=== PATIENT | female | born 1955 ===

== ENCOUNTER 2024-02-01 16:00 | Inpatient (IN) | payer MEDICARE, OTHER, SELFPAY ==
[2024-02-01 16:42] VITALS: BP 167/93; PULSE 104; RESP 16; TEMP 37.3; O2SAT 94
[2024-02-01 17:19] VITALS: BMI 17.2
[2024-02-01 18:27] VITALS: BP 163/91
[2024-02-01] MEDS: amLODIPine Besylate 2.5 MG TABLET PO (18:27)
[2024-02-01] MEDS: Cyclobenzaprine HCl 5 MG TABLET PO (18:28)
[2024-02-01] MEDS: Venlafaxine HCl ER 150 MG CAP.ER.24H PO (18:29)
[2024-02-01] MEDS: Docusate Sodium 100 MG CAPSULE PO (18:29)
[2024-02-01] MEDS: traZODone HCL 50 MG TABLET PO (18:30)
[2024-02-01] MEDS: LORazepam 1 MG TABLET PO (18:44)
--- NOTE | 2024-02-01 18:48 | PC.ADMIT ---
Pt was admitted to S1 from on 12B for the treatment of depression with SI. Precipitants of this admission include pt recently feeling increasingly lonely and unsafe at home which lead her to take more of her Ativan intentionally to ?sleep?. Pt denies this being a suicidal gesture at this time ?If I wanted to I would take the whole bottle?. During our discussion pt is alert and oriented x4, tearful, anxious, but cooperative with the admission process. Mood is described as depressed and anxious ?9/10?.? Affect is congruent to reported mood. Pt denies SI/HI (plan or intent). Pt denies AH/VH. Pt?s thought process is logical and linear. Pt has very poor appetite and has recently lost over 15 pounds. Pt unable to sleep at night due to racing thoughts and feeling ?afraid to be alone at night?. Tox screen positive for cannabinoids, opiates, and benzos. Pt is an everyday marijuana+cigarette smoker. Pt has a long history of medical issues including hyperlipidemia, hypertension, lung tumor removal surgery, and emphysema/COPD. Pt has chronic lower back pain which she rates 9/10 but otherwise denies any physical complaints. Pt ambulates + attends to ADLs independently, gait can be unsteady however due to lower back pain. She is on 5 min checks for safety/new patient and is a fall risk (recent fall, unsteady gait). She is structured and psych group appropriate. Pt has a healthcare proxy - her sister (see documentation under legal section in chart). Skin check reveleased scattered cuts and bruises throughout her arms and legs including a right arm cutting wound (wound consult ordered). See full assessment for more info.
--- NOTE | 2024-02-01 19:06 | PC.ADMIT ---
Pt was admitted to S1 at 1610 from [facility] on a 12B for the treatment of depression with SI. Precipitants of this admission include pt recently feeling increasingly lonely and unsafe at home which lead her to take more of her Ativan intentionally to ?fall sleep?. Pt denies this being a suicidal gesture at this time ?If I wanted to I would take the whole bottle?. During our discussion pt is alert and oriented x4, tearful, anxious, but cooperative with the admission process. Mood is described as depressed and anxious ?9/10?.? Affect is congruent to reported mood. Pt denies SI/HI (plan or intent). Pt denies AH/VH. Pt?s thought process is logical and linear. Pt has very poor appetite and has recently lost over 15 pounds. Pt unable to sleep at night due to racing thoughts and feeling ?afraid to be alone at night?. Tox screen positive for cannabinoids, opiates, and benzos. Pt is an everyday marijuana+cigarette smoker. Pt has a long history of medical issues including hyperlipidemia, hypertension, lung tumor removal surgery, and emphysema/COPD. Pt has chronic lower back pain which she rates 9/10 but otherwise denies any physical complaints. Pt ambulates + attends to ADLs independently, gait can be unsteady however due to lower back pain. She is on 5 min checks for safety/new patient and is a fall risk (recent fall, unsteady gait). She is structured and psych group appropriate. Pt has a healthcare proxy - her sister (see documentation under legal section in chart). Skin check reveleased scattered cuts and bruises throughout her arms and legs including a right arm cutting wound (wound consult ordered). See full assessment for more info.
[2024-02-01 20:00] VITALS: BP 123/70; PULSE 95; RESP 18; TEMP 36.4; O2SAT 96
[2024-02-01] MEDS: HYDROcodone Bit/Acetam 5/325 TABLET 2 TAB PO (20:23)
[2024-02-01] MEDS: Acyclovir 200 MG CAPSULE 400 MG PO (20:23)
[2024-02-02] MEDS: LORazepam 1 MG TABLET PO ×2 (06:46→20:47)
[2024-02-02 08:00] VITALS: BP 145/90; PULSE 98; RESP 18; TEMP 36.6; O2SAT 96
[2024-02-02 08:21] LABS: Alanine Aminotransferase 9 U/L (0-31); Alkaline Phosphatase 79 U/L (39-117); Anion Gap 14 (12-20); Aspartate Amino Transferase 11 U/L (5-31); Bilirubin Total 0.4 mg/dL (0.0-1.0); Blood Urea Nitrogen 19 mg/dL (9-16); Calcium 10.1 mg/dL (8.4-10.2); Carbon Dioxide 30 mmol/L (22-29); Chloride 102 mmol/L (96-108); Cholesterol 217 mg/dL (<200); Creatinine Clr Calc Pharmacy 52.6; Estimated Glomerular Filt Rate > 60; Glucose Fasting 68 mg/dL (60-99); HDL Cholesterol 55 mg/dL (>40); LDL Cholesterol Calculated 132 mg/dL (<100); Potassium 4.8 mmol/L (3.3-5.1); Sodium 141 mmol/L (135-145); Total Protein 6.9 g/dL (6.5-8.0); Triglycerides 150 mg/dL (<150)
[2024-02-02] MEDS: oxyBUTYnin chloride ER 5 MG TAB.ER.24 10 MG PO (08:40)
[2024-02-02] MEDS: traZODone HCL 50 MG TABLET PO (08:41)
[2024-02-02] MEDS: HYDROcodone Bit/Acetam 5/325 TABLET 2 TAB PO ×4 (08:41→20:44)
[2024-02-02] MEDS: Docusate Sodium 100 MG CAPSULE PO (08:41)
[2024-02-02 08:42] VITALS: BP 145/90
[2024-02-02] MEDS: Acyclovir 200 MG CAPSULE 400 MG PO ×3 (08:42→20:44)
[2024-02-02] MEDS: Venlafaxine HCl ER 150 MG CAP.ER.24H PO (08:42)
[2024-02-02] MEDS: amLODIPine Besylate 2.5 MG TABLET PO (08:42)
[2024-02-02] MEDS: Cyclobenzaprine HCl 5 MG TABLET PO (08:42)
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
--- NOTE | 2024-02-02 11:48 | HO.PM.IMCN ---
History of Present Illness Data of Consult Service Date: 02/02/24 Requesting physician: Jorge Valentino Primary Care Provider: Unknown Physician HPI Reason for consult: medical consult 68 yo f with a pmhx of HTN, HLD, stage 1 COPD, current smoker, overactive bladder, L lung ca s/p resection, cervical ca s/p hyst, osteoporosis, kidney stones, admitted to health system for depression and recent SI ?attempted benzo overdose on 01/29 seen at [facility] ED. No medical concerns today. She reports good control of blood pressures and COPD. Started ICS due to illness 1 month ago with persistent cough. Cough and sx resolved now and no longer using inhalers. hx of lung ca and cervical ca both surgically treated and no further radiation or chemotherapy needed. Review of Systems Constitutional: Constitutional: Denies body ache(s), Denies fatigue, Denies frequent falls and Denies headache(s) Eyes: Eyes: Denies change in vision and Denies diplopia ENT: Denies headache(s), Denies nasal congestion and Denies nasal discharge Cardiovascular: Cardiovascular: Denies chest pain, Denies leg edema and Denies dyspnea Respiratory: Respiratory: Denies chest congestion, Denies cough and Denies dyspnea Gastrointestinal: Gastrointestinal: Denies abdominal pain, Denies constipation, Denies diarrhea, Denies nausea and Denies vomiting Genitourinary: Genitourinary: Denies dysuria Musculoskeletal: Musculoskeletal: Denies back pain and Denies myalgias Integumentary/Breasts: Skin/Breast: Denies rash Comments: wound RUE Neurologic: Denies frequent falls and Denies headache(s) Psychiatric: Psychiatric: Reports no additional psychiatric complaints Endocrine: Endocrine: Denies fatigue Hematologic/Lymphatic: Hematologic/Lymphatic: Denies easy bleeding and Denies easy bruising [facility] Medical History (Updated 02/02/24 @ 14:17 by Kitty Samuels PA-C) Kidney stones Fibromyalgia Overactive bladder HLD (hyperlipidemia) HTN (hypertension) COPD on long-term inhaled steroid therapy Lung cancer Cervical cancer Functional capacity: independent ambulation Patient : No Surgical History (Updated 02/02/24 @ 14:09 by Kitty Samuels PA-C) History of elbow surgery History of ankle surgery Hx of appendectomy Hx of hysterectomy Social History Household Members: None Housing: Apartment Do you presently have visiting nurse or other home services: No Patient Tobacco Use Status: Current everyday Tobacco user Tobacco use type: Cigarette Cigarette Packs Per Day: 1 Cigarettes Per Day: 20.0 Years Smoked: 55 Second Hand Smoke Exposure: No Substance Use Type: Marijuana Advance Directives Date on File: 02/01/24 Meds Allergies Allergy/AdvReac Type Severity Reaction Status Date / Time alendronate sodium Allergy Gastrointestinal Verified 02/01/24 16:59 Upset fluoxetine Allergy Unknown Verified 02/01/24 16:59 morphine Allergy Hives Verified 02/01/24 16:59 Penicillins Allergy Hives Verified 02/01/24 16:59 simvastatin Allergy Unknown Verified 02/01/24 16:59 varenicline AdvReac Unknown Verified 02/01/24 16:59 Active Medications: Current Medications Acetaminophen (Acetaminophen 325 Mg Tablet) 650 mg PO Q6H PRN PRN Reason: Headache/Pain Mild Scale (1-3) Hydrocodone Bitart/Acetaminophen (Hydrocodone Bit/Acetam 5/325 Tablet) 2 tab PO QID [facility] Last Admin: 02/02/24 08:41 Dose: 2 tab Acyclovir (Acyclovir 200 Mg Capsule) 400 mg PO TID [facility] Last Admin: 02/02/24 08:42 Dose: 400 mg Al Hydroxide/Mg Hydroxide (Magnesium Hydrox/Alum Hydrox 30 Ml Oral.Susp) 30 ml PO Q6H PRN PRN Reason: Heartburn/Nausea Albuterol Sulfate (Albuterol Sulfate 90 Mcg 8 Gm Inhaler) 2 puff INHALE Q4H PRN PRN Reason: Shortness Of Breath Amlodipine Besylate (Amlodipine Besylate 2.5 Mg Tablet) 2.5 mg PO DAILY [facility]; Protocol Last Admin: 02/02/24 08:42 Dose: 2.5 mg Cyclobenzaprine HCl (Cyclobenzaprine Hcl 5 Mg Tablet) 5 mg PO DAILY [facility] Last Admin: 02/02/24 08:42 Dose: 5 mg Docusate Sodium (Docusate Sodium 100 Mg Capsule) 100 mg PO DAILY [facility] Last Admin: 02/02/24 08:41 Dose: 100 mg Hydroxyzine HCl (Hydroxyzine Hcl 25 Mg Tablet) 25 mg PO Q6H PRN PRN Reason: Anxiety Lorazepam (Lorazepam 1 Mg Tablet) 1 mg PO TID PRN PRN Reason: Anxiety Last Admin: 02/02/24 06:46 Dose: 1 mg Magnesium Hydroxide (Milk Of Magnesia 30 Ml Oral.Susp) 30 ml PO DAILY PRN PRN Reason: Constipation Oxybutynin Chloride (Oxybutynin Chloride Er 5 Mg Tab.Er.24) 10 mg PO DAILY [facility] Last Admin: 02/02/24 08:40 Dose: 10 mg Trazodone HCl (Trazodone Hcl 50 Mg Tablet) 50 mg PO BEDTIME MRX1 PRN PRN Reason: Insomnia Trazodone HCl (Trazodone Hcl 50 Mg Tablet) 50 mg PO DAILY [facility] Last Admin: 02/02/24 08:41 Dose: 50 mg Venlafaxine HCl (Venlafaxine Hcl Er 150 Mg Cap.Er.24h) 150 mg PO DAILY [facility] Last Admin: 02/02/24 08:42 Dose: 150 mg Home Medications ?Medication ?Instructions ?Recorded ?Confirmed ?Last Taken ?Type acyclovir 400 mg tablet 400 mg PO TID 02/01/24 02/01/24 Unknown History albuterol sulfate 90 mcg/actuation 90 mcg inhalation Q3-4H PRN 02/01/24 02/01/24 Unknown History aerosol inhaler Shortness Of Breath amlodipine 2.5 mg tablet 2.5 mg PO 1XD 02/01/24 02/01/24 Unknown History cyclobenzaprine 5 mg tablet 5 mg PO 1XD 02/01/24 02/01/24 Unknown History docusate sodium 100 mg capsule 100 mg PO 1XD 02/01/24 02/01/24 Unknown History hydrocodone 10 mg-acetaminophen 10 - 325 tab PO QID 02/01/24 02/01/24 Unknown History 325 mg tablet lorazepam 1 mg tablet 1 mg PO QID 02/01/24 02/01/24 Unknown History oxybutynin chloride 10 mg 10 mg PO 1XD 02/01/24 02/01/24 Unknown History tablet,extended release 24 hr trazodone 50 mg tablet 50 mg PO 1XD insomnia 02/01/24 02/01/24 Unknown History venlafaxine 150 mg 150 mg PO 1XD 02/01/24 02/01/24 Unknown History capsule,extended release 24 hr Physical Exam Vital Signs and Narrative: Vital Signs: Last Vital Signs Temp 97.9 F 02/02/24 08:00 Pulse 98 02/02/24 08:00 Resp 18 02/02/24 08:00 BP 145/90 H 02/02/24 08:42 Pulse Ox 96 02/02/24 08:00 O2 Del Method Room Air 02/02/24 08:00 BMI result Body Mass Index 17.2 Constitutional: Alert, oriented x3, NAD Mental Status: Oriented to person, place and time. Eyes: Pupils are equal, round, and reactive to light. Ear, Nose, and Throat: Oropharynx clear, mucous membranes moist. Ears and nose without deformities. Trachea midline. Respiratory: Clear to auscultation bilaterally. No wheezing, rales, or rhonchi. Cardiovascular: S1, S2 regular. No murmurs, rubs, or gallops. Gastrointestinal: Abdomen soft, non-tender, non-distended. Normal bowel sounds. Neurologic: Cranial nerves II-XII are grossly intact bilaterally. No focal neurological deficits. Moves all extremities spontaneously. Skin: Warm, dry. elongated partial thickness wound lateral upper right extremity. appears to be healing, no bleeding or purulent drainage. bandage replaced. Musculoskeletal: No cyanosis or clubbing. Extremities: No edema. Psychiatric: Normal mood and affect. Results Labs 02/02/24 07:40 Labs: Laboratory Results - last 24 hr 02/02/24 07:40 Anion Gap 14 Estim Creat Clear Calc 52.6 Estimated GFR > 60 Fasting Glucose 68 Calcium 10.1 Total Bilirubin 0.4 AST 11 ALT 9 Alkaline Phosphatase 79 Total Protein 6.9 Albumin 4.0 Triglycerides 150 H Cholesterol 217 H LDL Cholesterol, Calc 132 H HDL Cholesterol 55 Assessment and Plan (1) Medical clearance for psychiatric admission: Status: Acute Plan 68 yo f with a pmhx of HTN, HLD, stage 1 COPD, current smoker, overactive bladder, L lung ca s/p resection, cervical ca s/p hyst, osteoporosis, kidney stones and fibromyalgia, admitted to [facility] for depression and recent SI ?attempted benzo overdose on 01/29 seen at [facility] ED. depression/mood d/o - plan per psych HTN - continue amlodipine 2.5mg QD HLD - no medications at this time - borderline elevation of triglycerides, cholesterol, and LDL, monitor lipids presumed stage 1 COPD - not currently using any inhalers and not having cough or SOB - continue montelukast 10mg QD - add anoro inhaler if cough or SOB returns - albuterol inhaler PRN smoker - smoking cessation - nicotine patch overactive bladder - continue oxybutynin hx lung ca - s/p resection, no further tx needed, recent CT normal hx cervical ca - s/p hysterectomy, no further tx needed osteoporosis - restart vitamin D3 25mcg QD Thank you for allowing me to participate in the pt's care. Please contact the medical team if any questions or concerns.
[2024-02-02 14:13] VITALS: BMI 17.2
--- NOTE | 2024-02-02 14:20 | MHC.CLN ---
NUTRITION CONSULT FOR WEIGHT LOSS AND ANOREXIA. DIET=REGULAR. ATE 100% OF BREAKFAST AND LUNCH TODAY. DOES NOT WANT ENSURE SUPPLEMENT. UNDERWEIGHT WITH BMI=17.2. DISCUSSED THAT CAN MAKE OWN FOOD CHOICES AND THAT SNACKS AVAILABLE ON THE UNIT. NO ADDITIONAL NUTRITION INTERVENTIONS AT THIS TIME. SEE CLINICAL NUTRITION ASSESSMENT 02/02/24.
[2024-02-02] MEDS: Nicotine 14 MG PATCH.TD24 TRANSDERMA (15:25)
--- NOTE | 2024-02-02 15:33 | HO.WOUND ---
Wound Consult: Initial 68yr old?female admitted to [facility] [place] on 02/01/24 to the behavioral health unit - See progress notes and H&P for detailed history.? Wound consult placed for Right upper arm.? Patient agreeable to assessment and photo documentation.? Patient is not able to recall the nature of the injury - appears to be skin tear trauma related. Right Upper Arm Etiology: ?Skin Tear ?Present on Admission Measurements: see charting for detailed measurement Wound Bed: deep partial thickness tissue loss, skin flap re-approximated in some areas Drainage / Odor: none noted Edges: ? irregular Cathy wound: ? intact No Induration, Fluctuance or Warmth noted Pain: mild tenderness reported Goals of Treatment: ?moist wound healing Recommendations: 1. Right Upper Arm - Cleanse with normal saline, pat dry. ?Apply Xeroform secure with Abd pads, and tape. Change Daily. ? Re-consult wound care Nurse for wound deterioration or wound changes.
--- NOTE | 2024-02-02 15:49 | PC.NURSE ---
Pt has scratches/bruising on bilateral lower and upper extremities. Wound consult completed, new order for skin tear on right upper arm. Will continue to monitor.
[2024-02-02 20:00] VITALS: BP 137/85; PULSE 92; RESP 18; TEMP 36.6; O2SAT 96
[2024-02-03] MEDS: hydrOXYzine HCL 25 MG TABLET PO ×2 (00:19→20:34)
[2024-02-03] MEDS: traZODone HCL 50 MG TABLET PO ×2 (00:20→08:20)
[2024-02-03 08:00] VITALS: BP 145/98; PULSE 100; RESP 18; TEMP 36.9; O2SAT 96
[2024-02-03] MEDS: HYDROcodone Bit/Acetam 5/325 TABLET 2 TAB PO ×4 (08:19→20:33)
[2024-02-03] MEDS: Docusate Sodium 100 MG CAPSULE PO (08:20)
[2024-02-03] MEDS: oxyBUTYnin chloride ER 5 MG TAB.ER.24 10 MG PO (08:20)
[2024-02-03 08:21] VITALS: BP 145/98
[2024-02-03] MEDS: Acyclovir 200 MG CAPSULE 400 MG PO ×3 (08:21→20:33)
[2024-02-03] MEDS: Venlafaxine HCl ER 150 MG CAP.ER.24H PO (08:21)
[2024-02-03] MEDS: amLODIPine Besylate 2.5 MG TABLET PO (08:21)
[2024-02-03] MEDS: Cholecalciferol (Vitamin D3) 25 MCG TABLET PO (08:22)
[2024-02-03] MEDS: Cyclobenzaprine HCl 5 MG TABLET PO (08:32)
[2024-02-03] MEDS: Nicotine 14 MG PATCH.TD24 TRANSDERMA (08:32)
--- NOTE | 2024-02-03 14:08 | HO.PSYCHPN ---
Subjective Subjective Date of Service: 02/03/24 Reason For Visit: Depression Subjective Notes: Conditional Voluntary Healthcare Proxy: No Guardianship: No Medical Problems Affecting Mental Status: Yes (chronic pain, multiple medical issues none acute) Interim History: 68 yo [address] alone in [facility], 2 daugther in [place] and grandchild- struggling with depression, anxiety, insomnia and chronic pain- We discussed other meds to sleep as well as ? if she should maybe move to [place] to be closer to family- She has a bff in [facility] = but doesn tlike to bother her no access to car right now so is fairly isolated at home- Medication Compliance: Yes Side effects from medications: No Attending Groups: Intermittent Review of Systems Acute medical concerns: No Medical Review of Systems: unchanged Mental Status Exam Mental Status Exam Narrative: looks older than stated age Patient Appearance: Well Grooomed and Appropriate Patient Orientation: Person, Place, Time and Situation Level of Consciousness: Awake and Alert Mood Description: Anxious, Sad and Apprehensive Affect Description: Constricted Patient Cognition Impaired: No Ability to Follow Directions: Good Speech Pattern: Clear Thought Process: Intact and Goal Oriented Thought Content: positive for Goal Oriented and positive for Suicidal Ideation (denies currently, but clearly at risk) Depressive Symptoms: Increased Anxiety, Muscle Tension, Difficulty Sleeping, Significant Weight Loss and Isolating-Friends/Family Judgement: Fair Diagnostics Vital Signs (24Hr): Vital Signs - 24 hr 02/02/24 20:00 02/03/24 08:00 02/03/24 08:21 Temperature 97.8 F 98.4 F Pulse Rate 92 100 Respiratory Rate 18 18 Blood Pressure 137/85 145/98 H 145/98 H Pulse Oximetry 96 96 Oxygen Delivery Method Room Air Room Air BMI result Body Mass Index 17.2 Labs 02/02/24 07:40 Labs: Laboratory Results - last 48 hr 02/02/24 07:40 Sodium 141 Potassium 4.8 Chloride 102 Carbon Dioxide 30 H Anion Gap 14 BUN 19 H Creatinine 0.71 Estim Creat Clear Calc 52.6 Estimated GFR > 60 Fasting Glucose 68 Calcium 10.1 Total Bilirubin 0.4 AST 11 ALT 9 Alkaline Phosphatase 79 Total Protein 6.9 Albumin 4.0 Triglycerides 150 H Cholesterol 217 H LDL Cholesterol, Calc 132 H HDL Cholesterol 55 Medications Medications Current Medications Acetaminophen (Acetaminophen 325 Mg Tablet) 650 mg PO Q6H PRN PRN Reason: Headache/Pain Mild Scale (1-3) Hydrocodone Bitart/Acetaminophen (Hydrocodone Bit/Acetam 5/325 Tablet) 2 tab PO QID [facility] Last Admin: 02/03/24 13:07 Dose: 2 tab Acyclovir (Acyclovir 200 Mg Capsule) 400 mg PO TID [facility] Last Admin: 02/03/24 08:21 Dose: 400 mg Al Hydroxide/Mg Hydroxide (Magnesium Hydrox/Alum Hydrox 30 Ml Oral.Susp) 30 ml PO Q6H PRN PRN Reason: Heartburn/Nausea Albuterol Sulfate (Albuterol Sulfate 90 Mcg 8 Gm Inhaler) 2 puff INHALE Q4H PRN PRN Reason: Shortness Of Breath Amlodipine Besylate (Amlodipine Besylate 2.5 Mg Tablet) 2.5 mg PO DAILY [facility]; Protocol Last Admin: 02/03/24 08:21 Dose: 2.5 mg Cyclobenzaprine HCl (Cyclobenzaprine Hcl 5 Mg Tablet) 5 mg PO DAILY [facility] Last Admin: 02/03/24 08:32 Dose: 5 mg Docusate Sodium (Docusate Sodium 100 Mg Capsule) 100 mg PO DAILY [facility] Last Admin: 02/03/24 08:20 Dose: 100 mg Hydroxyzine HCl (Hydroxyzine Hcl 25 Mg Tablet) 25 mg PO Q6H PRN PRN Reason: Anxiety Last Admin: 02/03/24 00:19 Dose: 25 mg Lorazepam (Lorazepam 1 Mg Tablet) 1 mg PO TID PRN PRN Reason: Anxiety Last Admin: 02/02/24 20:47 Dose: 1 mg Magnesium Hydroxide (Milk Of Magnesia 30 Ml Oral.Susp) 30 ml PO DAILY PRN PRN Reason: Constipation Nicotine (Nicotine 14 Mg Patch.Td24) 14 mg TRANSDERMA DAILY [facility] Last Admin: 02/03/24 08:32 Dose: 14 mg Oxybutynin Chloride (Oxybutynin Chloride Er 5 Mg Tab.Er.24) 10 mg PO DAILY [facility] Last Admin: 02/03/24 08:20 Dose: 10 mg Trazodone HCl (Trazodone Hcl 50 Mg Tablet) 50 mg PO BEDTIME MRX1 PRN PRN Reason: Insomnia Last Admin: 02/03/24 00:20 Dose: 50 mg Trazodone HCl (Trazodone Hcl 50 Mg Tablet) 50 mg PO DAILY [facility] Last Admin: 10/05/24 08:20 Dose: 50 mg Venlafaxine HCl (Venlafaxine Hcl Er 150 Mg Cap.Er.24h) 150 mg PO DAILY [facility] Last Admin: 02/03/24 08:21 Dose: 150 mg Vitamin D (Cholecalciferol (Vitamin D3) 25 Mcg Tablet) 25 mcg PO DAILY [facility] Last Admin: 02/03/24 08:22 Dose: 25 mcg Allergies Allergies Allergy/AdvReac Type Severity Reaction Status Date / Time alendronate sodium Allergy Gastrointestinal Verified 02/01/24 16:59 Upset fluoxetine Allergy Unknown Verified 02/01/24 16:59 morphine Allergy Hives Verified 02/01/24 16:59 Penicillins Allergy Hives Verified 02/01/24 16:59 simvastatin Allergy Unknown Verified 02/01/24 16:59 varenicline AdvReac Unknown Verified 02/01/24 16:59 Assessment & Plan Assessment & Plan (1) MDD (major depressive disorder), recurrent severe, without psychosis: Status: Acute Code(s): F33.2 - Major depressive disorder, recurrent severe without psychotic features Plan Ms. Robles is a 68 year-old woman who was brought via EMS to [facility] ED after intentional OD on ativan. Per documentation from ED, pt had reported taking half bottle of ativan. It is unclear as to who called 911, pt denies she did. In the ED, no significant signs of an actual ativan overdose; pt is described as alert, oriented, no respiratory distress. She reports taking about 4mg-6mg of ativan or so, to help her sleep.' She reports frequent falls, but also reports not remembering how she got them. She has a 1-2cm wound on left knee which she states she does not know how it happened. She also cut right upper arm, which again she states she does not know how it happened. Combination and doses of opioid medication and ativan are concerning. It does seem like ativan has been decreased from 6mg/day to 4mg/day. We discussed gradual decrease in ativan further, to 1mg TID or 0.5mg TID, which pt was in agreement. Will continue effexor 150mg po daily. Will repeat EKG as Qtc was prolonged 505ms. PLAN 1. Admit to S1, CV, 15 minutes checks for safety 2. Memory/cognitive screening 3. obtain collateral information 4. aftercare planning. 02/02 held trazodone trial of seroquel for sleep and depression- adjunct to effexor- suggested family phone call with sw to discuss options of relocating- needs something to make her less isolated and more connected in her community to decrease risks on dc Patient educated on: medication risk/benefits and other Informed Consent: understands Reason for continued inpatient stay Substantial Risk for: harm to self and rapid decompensation Time Spent With Patient Time: Total time managing care of this patient today ____ minutes.
[2024-02-03 20:00] VITALS: BP 130/85; PULSE 87; RESP 18; TEMP 36.6; O2SAT 95
[2024-02-03] MEDS: LORazepam 1 MG TABLET PO (20:33)
[2024-02-03] MEDS: QUEtiapine Fumarate 25 MG TABLET PO ×2 (20:34→21:55)
[2024-02-04 08:56] VITALS: BP 164/85; PULSE 82; RESP 18; TEMP 36.7; O2SAT 97
[2024-02-04] MEDS: Cyclobenzaprine HCl 5 MG TABLET PO (09:43)
[2024-02-04] MEDS: HYDROcodone Bit/Acetam 5/325 TABLET 2 TAB PO ×4 (09:44→20:32)
[2024-02-04] MEDS: oxyBUTYnin chloride ER 5 MG TAB.ER.24 10 MG PO (09:45)
[2024-02-04] MEDS: Docusate Sodium 100 MG CAPSULE PO (09:45)
[2024-02-04] MEDS: Venlafaxine HCl ER 150 MG CAP.ER.24H PO (09:45)
[2024-02-04] MEDS: amLODIPine Besylate 2.5 MG TABLET PO (09:45)
[2024-02-04] MEDS: Acyclovir 200 MG CAPSULE 400 MG PO ×3 (09:46→20:32)
[2024-02-04] MEDS: Cholecalciferol (Vitamin D3) 25 MCG TABLET PO (09:46)
[2024-02-04] MEDS: Nicotine 14 MG PATCH.TD24 TRANSDERMA (09:47)
[2024-02-04] MEDS: hydrOXYzine HCL 25 MG TABLET PO ×2 (13:31→20:32)
[2024-02-04] MEDS: LORazepam 1 MG TABLET PO ×2 (13:55→23:11)
--- NOTE | 2024-02-04 14:18 | HO.PSYCHPN ---
Subjective Subjective Date of Service: 02/04/24 Reason For Visit: Depression Subjective Notes: Conditional Voluntary Healthcare Proxy: No Guardianship: No Medical Problems Affecting Mental Status: No Interim History: 68 yo with continued anxiety, slept better last night , ,now in nicotene withdrawal - initially refusing nicotine gum with patch- but did agree to lozenge- Slept with quetiapine 1 tab- did have slight dizzyiness this am - but no unsteadiness of feet- trazodone has been held- will be dced Pt anxious to be dced- suggested strongly she stay and have family meeting with SW about possiblity of moving to [place] to be closer to family and /or strategize about decreasing her isolation on [facility] with no transportation. Also concerns about benzo on top of opiates for chronic pain potentially problematic Medication Compliance: Yes Side effects from medications: No Attending Groups: Intermittent Review of Systems Acute medical concerns: No Medical Review of Systems: unchanged Mental Status Exam Mental Status Exam Patient Appearance: Well Grooomed and Appropriate Patient Orientation: Person, Place, Time and Situation Level of Consciousness: Awake and Alert Patient Behavior: Cooperative and Good Eye Contact Mood Description: Anxious Affect Description: Apprehensive Patient Cognition Impaired: No Ability to Follow Directions: Good Speech Pattern: Clear Hallucinations: None Delusions: Not Present Thought Process: Intact and Goal Oriented Thought Content: positive for Goal Oriented Depressive Symptoms: Increased Anxiety and Isolating-Friends/Family Judgement: Fair Diagnostics Vital Signs (24Hr): Vital Signs - 24 hr 02/03/24 20:00 02/04/24 08:56 Temperature 97.8 F 98.1 F Pulse Rate 87 82 Respiratory Rate 18 18 Blood Pressure 130/85 164/85 H Pulse Oximetry 95 97 Oxygen Delivery Method Room Air Room Air BMI result Body Mass Index 17.2 Labs 02/02/24 07:40 Medications Medications Current Medications Acetaminophen (Acetaminophen 325 Mg Tablet) 650 mg PO Q6H PRN PRN Reason: Headache/Pain Mild Scale (1-3) Hydrocodone Bitart/Acetaminophen (Hydrocodone Bit/Acetam 5/325 Tablet) 2 tab PO QID [facility] Last Admin: 02/04/24 13:30 Dose: 2 tab Acyclovir (Acyclovir 200 Mg Capsule) 400 mg PO TID [facility] Last Admin: 02/04/24 13:31 Dose: 400 mg Al Hydroxide/Mg Hydroxide (Magnesium Hydrox/Alum Hydrox 30 Ml Oral.Susp) 30 ml PO Q6H PRN PRN Reason: Heartburn/Nausea Albuterol Sulfate (Albuterol Sulfate 90 Mcg 8 Gm Inhaler) 2 puff INHALE Q4H PRN PRN Reason: Shortness Of Breath Amlodipine Besylate (Amlodipine Besylate 2.5 Mg Tablet) 2.5 mg PO DAILY [facility]; Protocol Last Admin: 02/04/24 09:45 Dose: 2.5 mg Cyclobenzaprine HCl (Cyclobenzaprine Hcl 5 Mg Tablet) 5 mg PO DAILY [facility] Last Admin: 02/04/24 09:43 Dose: 5 mg Docusate Sodium (Docusate Sodium 100 Mg Capsule) 100 mg PO DAILY [facility] Last Admin: 02/04/24 09:45 Dose: 100 mg Hydroxyzine HCl (Hydroxyzine Hcl 25 Mg Tablet) 25 mg PO Q6H PRN PRN Reason: Anxiety Last Admin: 02/04/24 13:31 Dose: 25 mg Lorazepam (Lorazepam 1 Mg Tablet) 1 mg PO BID PRN PRN Reason: Anxiety Last Admin: 02/04/24 13:55 Dose: 1 mg Magnesium Hydroxide (Milk Of Magnesia 30 Ml Oral.Susp) 30 ml PO DAILY PRN PRN Reason: Constipation Nicotine (Nicotine 14 Mg Patch.Td24) 14 mg TRANSDERMA DAILY [facility] Last Admin: 02/04/24 09:47 Dose: 14 mg Oxybutynin Chloride (Oxybutynin Chloride Er 5 Mg Tab.Er.24) 10 mg PO DAILY [facility] Last Admin: 02/04/24 09:45 Dose: 10 mg Quetiapine Fumarate (Quetiapine Fumarate 25 Mg Tablet) 25 mg PO BEDTIME MRX1 [facility] Last Admin: 02/03/24 21:55 Dose: 25 mg Trazodone HCl (Trazodone Hcl 50 Mg Tablet) 50 mg PO BEDTIME MRX1 PRN PRN Reason: Insomnia Last Admin: 02/03/24 00:20 Dose: 50 mg Trazodone HCl (Trazodone Hcl 50 Mg Tablet) 50 mg PO DAILY [facility] Last Admin: 02/03/24 08:20 Dose: 50 mg Venlafaxine HCl (Venlafaxine Hcl Er 150 Mg Cap.Er.24h) 150 mg PO DAILY [facility] Last Admin: 02/04/24 09:45 Dose: 150 mg Vitamin D (Cholecalciferol (Vitamin D3) 25 Mcg Tablet) 25 mcg PO DAILY [facility] Last Admin: 02/04/24 09:46 Dose: 25 mcg Allergies Allergies Allergy/AdvReac Type Severity Reaction Status Date / Time alendronate sodium Allergy Gastrointestinal Verified 02/01/24 16:59 Upset fluoxetine Allergy Unknown Verified 02/01/24 16:59 morphine Allergy Hives Verified 02/01/24 16:59 Penicillins Allergy Hives Verified 02/01/24 16:59 simvastatin Allergy Unknown Verified 02/01/24 16:59 varenicline AdvReac Unknown Verified 02/01/24 16:59 Assessment & Plan Assessment & Plan (1) MDD (major depressive disorder), recurrent severe, without psychosis: Status: Acute Code(s): F33.2 - Major depressive disorder, recurrent severe without psychotic features Plan Ms. Robles is a 68 year-old woman who was brought via EMS to [facility] ED after intentional OD on ativan. Per documentation from ED, pt had reported taking half bottle of ativan. It is unclear as to who called 911, pt denies she did. In the ED, no significant signs of an actual ativan overdose; pt is described as alert, oriented, no respiratory distress. She reports taking about 4mg-6mg of ativan or so, to help her sleep.' She reports frequent falls, but also reports not remembering how she got them. She has a 1-2cm wound on left knee which she states she does not know how it happened. She also cut right upper arm, which again she states she does not know how it happened. Combination and doses of opioid medication and ativan are concerning. It does seem like ativan has been decreased from 6mg/day to 4mg/day. We discussed gradual decrease in ativan further, to 1mg TID or 0.5mg TID, which pt was in agreement. Will continue effexor 150mg po daily. Will repeat EKG as Qtc was prolonged 505ms. PLAN 1. Admit to S1, CV, 15 minutes checks for safety 2. Memory/cognitive screening 3. obtain collateral information 4. aftercare planning. 02/02 held trazodone trial of seroquel for sleep and depression- adjunct to effexor- suggested family phone call with sw to discuss options of relocating- needs something to make her less isolated and more connected in her community to decrease risks on dc 02/03 ,add in gurwinder, seroquel substituted for trazodone, CTP Patient educated on: medication risk/benefits, therapeutic strategies and other (dc planning) Informed Consent: understands and further education needed Reason for continued inpatient stay Substantial Risk for: rapid decompensation and med/psych decompensation Time Spent With Patient Time: Total time managing care of this patient today ____ minutes.
[2024-02-04 19:54] VITALS: BP 124/74; PULSE 90; RESP 18; TEMP 36.2; O2SAT 99
[2024-02-04] MEDS: QUEtiapine Fumarate 25 MG TABLET PO ×2 (20:32→21:40)
[2024-02-05] MEDS: Nicotine Polacrilex Lozenge 4 MG LOZENGE BUCCAL (05:34)
[2024-02-05 08:00] VITALS: BP 165/85; PULSE 105; RESP 16; TEMP 36.4; O2SAT 94
[2024-02-05] MEDS: Nicotine 14 MG PATCH.TD24 TRANSDERMA (08:27)
[2024-02-05] MEDS: Acyclovir 200 MG CAPSULE 400 MG PO ×3 (08:28→20:13)
[2024-02-05] MEDS: amLODIPine Besylate 2.5 MG TABLET PO (08:28)
[2024-02-05] MEDS: Venlafaxine HCl ER 150 MG CAP.ER.24H PO (08:28)
[2024-02-05] MEDS: HYDROcodone Bit/Acetam 5/325 TABLET 2 TAB PO ×4 (08:28→20:13)
[2024-02-05] MEDS: Docusate Sodium 100 MG CAPSULE PO (08:28)
[2024-02-05] MEDS: oxyBUTYnin chloride ER 5 MG TAB.ER.24 10 MG PO (08:29)
[2024-02-05] MEDS: hydrOXYzine HCL 25 MG TABLET PO (08:29)
[2024-02-05] MEDS: Cholecalciferol (Vitamin D3) 25 MCG TABLET PO (08:29)
[2024-02-05] MEDS: Cyclobenzaprine HCl 5 MG TABLET PO (08:37)
--- NOTE | 2024-02-05 09:46 | P.PNPSI_ITS ---
Subjective Subjective Date of Service: 02/05/24 Reason For Visit: Depression Subjective Notes: Conditional Voluntary Interim History: Pt had interrupted sleep. She reports she slept better first night with seroquel but not last night. We had talked about sleep study. She has action tremor. She denies SI/HI. although admits to feeling depressed, better communication with daughter and thinking about moving to [place]. Diagnostics Vital Signs (24Hr): Vital Signs - 24 hr 02/04/24 19:54 02/05/24 08:00 Temperature 97.2 F 97.6 F Pulse Rate 90 105 H Respiratory Rate 18 16 Blood Pressure 124/74 165/85 H Pulse Oximetry 99 94 Oxygen Delivery Method Room Air Room Air BMI result Body Mass Index 17.2 Labs 02/02/24 07:40 Medications Medications Current Medications Acetaminophen (Acetaminophen 325 Mg Tablet) 650 mg PO Q6H PRN PRN Reason: Headache/Pain Mild Scale (1-3) Hydrocodone Bitart/Acetaminophen (Hydrocodone Bit/Acetam 5/325 Tablet) 2 tab PO QID [facility] Last Admin: 02/05/24 08:28 Dose: 2 tab Acyclovir (Acyclovir 200 Mg Capsule) 400 mg PO TID [facility] Last Admin: 02/05/24 08:28 Dose: 400 mg Al Hydroxide/Mg Hydroxide (Magnesium Hydrox/Alum Hydrox 30 Ml Oral.Susp) 30 ml PO Q6H PRN PRN Reason: Heartburn/Nausea Albuterol Sulfate (Albuterol Sulfate 90 Mcg 8 Gm Inhaler) 2 puff INHALE Q4H PRN PRN Reason: Shortness Of Breath Amlodipine Besylate (Amlodipine Besylate 2.5 Mg Tablet) 2.5 mg PO DAILY [facility]; Protocol Last Admin: 02/05/24 08:28 Dose: 2.5 mg Cyclobenzaprine HCl (Cyclobenzaprine Hcl 5 Mg Tablet) 5 mg PO DAILY [facility] Last Admin: 02/05/24 08:37 Dose: 5 mg Docusate Sodium (Docusate Sodium 100 Mg Capsule) 100 mg PO DAILY [facility] Last Admin: 02/05/24 08:28 Dose: 100 mg Hydroxyzine HCl (Hydroxyzine Hcl 25 Mg Tablet) 25 mg PO Q6H PRN PRN Reason: Anxiety Last Admin: 02/05/24 08:29 Dose: 25 mg Lorazepam (Lorazepam 1 Mg Tablet) 1 mg PO BID PRN PRN Reason: Anxiety Last Admin: 02/04/24 23:11 Dose: 1 mg Magnesium Hydroxide (Milk Of Magnesia 30 Ml Oral.Susp) 30 ml PO DAILY PRN PRN Reason: Constipation Nicotine (Nicotine 14 Mg Patch.Td24) 14 mg TRANSDERMA DAILY [facility] Last Admin: 02/05/24 08:27 Dose: 14 mg Nicotine Polacrilex (Nicotine Polacrilex Lozenge 4 Mg Lozenge) 4 mg BUCCAL Q2H PRN PRN Reason: Nicotine Cravings Last Admin: 02/05/24 05:34 Dose: 4 mg Oxybutynin Chloride (Oxybutynin Chloride Er 5 Mg Tab.Er.24) 10 mg PO DAILY [facility] Last Admin: 02/05/24 08:29 Dose: 10 mg Quetiapine Fumarate (Quetiapine Fumarate 25 Mg Tablet) 25 mg PO BEDTIME MRX1 [facility] Last Admin: 02/04/24 21:40 Dose: 25 mg Venlafaxine HCl (Venlafaxine Hcl Er 150 Mg Cap.Er.24h) 150 mg PO DAILY [facility] Last Admin: 02/05/24 08:28 Dose: 150 mg Vitamin D (Cholecalciferol (Vitamin D3) 25 Mcg Tablet) 25 mcg PO DAILY [facility] Last Admin: 02/05/24 08:29 Dose: 25 mcg Allergies Allergies Allergy/AdvReac Type Severity Reaction Status Date / Time alendronate sodium Allergy Gastrointestinal Verified 02/01/24 16:59 Upset fluoxetine Allergy Unknown Verified 02/01/24 16:59 morphine Allergy Hives Verified 02/01/24 16:59 Penicillins Allergy Hives Verified 02/01/24 16:59 simvastatin Allergy Unknown Verified 02/01/24 16:59 varenicline AdvReac Unknown Verified 02/01/24 16:59 Assessment & Plan Assessment & Plan (1) MDD (major depressive disorder), recurrent severe, without psychosis: Status: Acute Code(s): F33.2 - Major depressive disorder, recurrent severe without psychotic features Plan Ms. Robles is a 68 year-old woman who was brought via EMS to [facility] ED after intentional OD on ativan. Per documentation from ED, pt had reported taking half bottle of ativan. It is unclear as to who called 911, pt denies she did. In the ED, no significant signs of an actual ativan overdose; pt is described as alert, oriented, no respiratory distress. She reports taking about 4mg-6mg of ativan or so, to help her sleep.' She reports frequent falls, but also reports not remembering how she got them. She has a 1-2cm wound on left knee which she states she does not know how it happened. She also cut right upper arm, which again she states she does not know how it happened. Combination and doses of opioid medication and ativan are concerning. It does seem like ativan has been decreased from 6mg/day to 4mg/day. We discussed gradual decrease in ativan further, to 1mg TID or 0.5mg TID, which pt was in agreement. Will continue effexor 150mg po daily. Will repeat EKG as Qtc was prolonged 505ms. PLAN 1. Admit to S1, CV, 15 minutes checks for safety 2. Memory/cognitive screening 3. obtain collateral information 4. aftercare planning. 02/02 held trazodone trial of seroquel for sleep and depression- adjunct to effexor- suggested family phone call with sw to discuss options of relocating- needs something to make her less isolated and more connected in her community to decrease risks on dc 02/03 ,add in nicotene, seroquel substituted for trazodone, CTP 02/04 continue tx. Reason for continued inpatient stay Substantial Risk for: inability to function Time Spent With Patient Time: Total time managing care of this patient today ____ minutes.
[2024-02-05 11:55] VITALS: BP 133/82
[2024-02-05] MEDS: Propranolol HCL 10 MG TABLET PO ×2 (12:00→20:13)
[2024-02-05] MEDS: Acetaminophen 325 MG TABLET 650 MG PO (18:51)
[2024-02-05 20:00] VITALS: BP 127/81; PULSE 81; RESP 18; TEMP 36.7; O2SAT 94
[2024-02-05] MEDS: LORazepam 0.5 MG TABLET PO (20:13)
[2024-02-05] MEDS: Melatonin 3 MG TABLET 6 MG PO (20:13)
[2024-02-05] MEDS: QUEtiapine Fumarate 50 MG TABLET PO (20:14)
[2024-02-06] MEDS: Acetaminophen 325 MG TABLET 650 MG PO (03:36)
--- NOTE | 2024-02-06 07:23 | PC.RT ---
unable to sleep study last night due to unavailable sitter. Will attempt tonight .
--- NOTE | 2024-02-06 07:31 | P.PNPSI_ITS ---
Subjective Subjective Date of Service: 02/06/24 Reason For Visit: Depression Subjective Notes: Conditional Voluntary Interim History: Pt reports slept a bit better last night. She presents as much calmer, propanolol seems to be helping for action tremors. No SI/HI. No overt psychosis or delusions. She will have sleep study tonight. No behavioral concerns. Review of Systems Constitutional: Denies body ache(s), Denies fatigue, Denies frequent falls and Denies headache(s) Eyes: Denies change in vision and Denies diplopia Denies headache(s), Denies nasal congestion and Denies nasal discharge Cardiovascular: Denies chest pain, Denies leg edema and Denies dyspnea Respiratory: Denies chest congestion, Denies cough and Denies dyspnea Gastrointestinal: Denies abdominal pain, Denies constipation, Denies diarrhea, Denies nausea and Denies vomiting Musculoskeletal: Denies back pain and Denies myalgias Skin/Breast: Denies rash Denies frequent falls and Denies headache(s) Psychiatric: Reports no additional psychiatric complaints Endocrine: Denies fatigue Hematologic/Lymphatic: Denies easy bleeding and Denies easy bruising Mental Status Exam Mental Status Exam Narrative: Appearance: wearing hospital gown, fair hygiene, thin, malnourished, appears older than stated age. Behavior: cooperative Psychomotor: no agitation or retardation noted Speech: clear, normal rate/rhythm/volume, spontaneous TP: linear TC: without signs of psychosis, open to receive tx Mood: depressed Affect: tearful, blunted SI: passive HI: none VH/AH: none Delusions: none Insight/judgment: poor x 2 Memory/cog: alert, oriented x 3. pending moca and ACL Diagnostics Vital Signs (24Hr): Vital Signs - 24 hr 02/05/24 08:00 02/05/24 11:55 02/05/24 20:00 Temperature 97.6 F 98.1 F Pulse Rate 105 H 81 Respiratory Rate 16 18 Blood Pressure 165/85 H 133/82 127/81 Pulse Oximetry 94 94 Oxygen Delivery Method Room Air Room Air BMI result Body Mass Index 17.2 Labs 02/02/24 07:40 Medications Medications Current Medications Acetaminophen (Acetaminophen 325 Mg Tablet) 650 mg PO Q6H PRN PRN Reason: Headache/Pain Mild Scale (1-3) Last Admin: 02/06/24 03:36 Dose: 650 mg Hydrocodone Bitart/Acetaminophen (Hydrocodone Bit/Acetam 5/325 Tablet) 2 tab PO QID [facility] Last Admin: 02/05/24 20:13 Dose: 2 tab Acyclovir (Acyclovir 200 Mg Capsule) 400 mg PO TID [facility] Last Admin: 02/05/24 20:13 Dose: 400 mg Al Hydroxide/Mg Hydroxide (Magnesium Hydrox/Alum Hydrox 30 Ml Oral.Susp) 30 ml PO Q6H PRN PRN Reason: Heartburn/Nausea Albuterol Sulfate (Albuterol Sulfate 90 Mcg 8 Gm Inhaler) 2 puff INHALE Q4H PRN PRN Reason: Shortness Of Breath Amlodipine Besylate (Amlodipine Besylate 2.5 Mg Tablet) 2.5 mg PO DAILY [facility]; Protocol Last Admin: 02/05/24 08:28 Dose: 2.5 mg Cyclobenzaprine HCl (Cyclobenzaprine Hcl 5 Mg Tablet) 5 mg PO DAILY [facility] Last Admin: 02/05/24 08:37 Dose: 5 mg Docusate Sodium (Docusate Sodium 100 Mg Capsule) 100 mg PO DAILY [facility] Last Admin: 02/05/24 08:28 Dose: 100 mg Hydroxyzine HCl (Hydroxyzine Hcl 25 Mg Tablet) 25 mg PO Q6H PRN PRN Reason: Anxiety Last Admin: 02/05/24 08:29 Dose: 25 mg Lorazepam (Lorazepam 0.5 Mg Tablet) 0.5 mg PO TID PRN PRN Reason: Anxiety Last Admin: 02/05/24 20:13 Dose: 0.5 mg Magnesium Hydroxide (Milk Of Magnesia 30 Ml Oral.Susp) 30 ml PO DAILY PRN PRN Reason: Constipation Melatonin (Melatonin 3 Mg Tablet) 6 mg PO BEDTIME [facility] Last Admin: 02/05/24 20:13 Dose: 6 mg Nicotine (Nicotine 14 Mg Patch.Td24) 14 mg TRANSDERMA DAILY [facility] Last Admin: 02/05/24 08:27 Dose: 14 mg Nicotine Polacrilex (Nicotine Polacrilex Lozenge 4 Mg Lozenge) 4 mg BUCCAL Q2H PRN PRN Reason: Nicotine Cravings Last Admin: 02/05/24 05:34 Dose: 4 mg Oxybutynin Chloride (Oxybutynin Chloride Er 5 Mg Tab.Er.24) 10 mg PO DAILY [facility] Last Admin: 02/05/24 08:29 Dose: 10 mg Propranolol HCl (Propranolol Hcl 10 Mg Tablet) 10 mg PO BID [facility]; Protocol Last Admin: 02/05/24 20:13 Dose: 10 mg Quetiapine Fumarate (Quetiapine Fumarate 50 Mg Tablet) 50 mg PO BEDTIME [facility] Last Admin: 02/05/24 20:14 Dose: 50 mg Venlafaxine HCl (Venlafaxine Hcl Er 150 Mg Cap.Er.24h) 150 mg PO DAILY [facility] Last Admin: 02/05/24 08:28 Dose: 150 mg Vitamin D (Cholecalciferol (Vitamin D3) 25 Mcg Tablet) 25 mcg PO DAILY [facility] Last Admin: 02/05/24 08:29 Dose: 25 mcg Allergies Allergies Allergy/AdvReac Type Severity Reaction Status Date / Time alendronate sodium Allergy Gastrointestinal Verified 02/01/24 16:59 Upset fluoxetine Allergy Unknown Verified 02/01/24 16:59 morphine Allergy Hives Verified 02/01/24 16:59 Penicillins Allergy Hives Verified 02/01/24 16:59 simvastatin Allergy Unknown Verified 02/01/24 16:59 varenicline AdvReac Unknown Verified 02/01/24 16:59 Assessment & Plan Assessment & Plan (1) MDD (major depressive disorder), recurrent severe, without psychosis: Status: Acute Code(s): F33.2 - Major depressive disorder, recurrent severe without psychotic features Plan Ms. Robles is a 68 year-old woman who was brought via EMS to [facility] ED after intentional OD on ativan. Per documentation from ED, pt had reported taking half bottle of ativan. It is unclear as to who called 911, pt denies she did. In the ED, no significant signs of an actual ativan overdose; pt is described as alert, oriented, no respiratory distress. She reports taking about 4mg-6mg of ativan or so, to help her sleep.' She reports frequent falls, but also reports not remembering how she got them. She has a 1-2cm wound on left knee which she states she does not know how it happened. She also cut right upper arm, which again she states she does not know how it happened. Combination and doses of opioid medication and ativan are concerning. It does seem like ativan has been decreased from 6mg/day to 4mg/day. We discussed gradual decrease in ativan further, to 1mg TID or 0.5mg TID, which pt was in agreement. Will continue effexor 150mg po daily. Will repeat EKG as Qtc was prolonged 505ms. PLAN 1. Admit to S1, CV, 15 minutes checks for safety 2. Memory/cognitive screening 3. obtain collateral information 4. aftercare planning. 02/02 held trazodone trial of seroquel for sleep and depression- adjunct to effexor- suggested family phone call with sw to discuss options of relocating- needs something to make her less isolated and more connected in her community to decrease risks on dc 02/03 ,add in gurwinder, seroquel substituted for trazodone, CTP 02/04 continue tx. 02/05 continue tx. Reason for continued inpatient stay Substantial Risk for: inability to function Time Spent With Patient Time: Total time managing care of this patient today ____ minutes.
[2024-02-06 08:00] VITALS: BP 169/82; PULSE 84; RESP 17; TEMP 37; O2SAT 95
[2024-02-06] MEDS: oxyBUTYnin chloride ER 5 MG TAB.ER.24 10 MG PO (08:17)
[2024-02-06] MEDS: Acyclovir 200 MG CAPSULE 400 MG PO ×3 (08:17→21:27)
[2024-02-06] MEDS: HYDROcodone Bit/Acetam 5/325 TABLET 2 TAB PO ×4 (08:18→21:26)
[2024-02-06] MEDS: amLODIPine Besylate 2.5 MG TABLET PO (08:23)
[2024-02-06] MEDS: Venlafaxine HCl ER 150 MG CAP.ER.24H PO (08:23)
[2024-02-06] MEDS: Cyclobenzaprine HCl 5 MG TABLET PO (08:23)
[2024-02-06] MEDS: Docusate Sodium 100 MG CAPSULE PO (08:23)
[2024-02-06] MEDS: Cholecalciferol (Vitamin D3) 25 MCG TABLET PO (08:23)
[2024-02-06] MEDS: Propranolol HCL 10 MG TABLET PO (08:23)
[2024-02-06] MEDS: Nicotine 14 MG PATCH.TD24 TRANSDERMA (09:55)
[2024-02-06] MEDS: LORazepam 0.5 MG TABLET PO ×2 (12:01→21:29)
[2024-02-06 20:00] VITALS: BP 159/88; PULSE 73; RESP 18; TEMP 36.6; O2SAT 96
[2024-02-06 21:25] VITALS: BP 159/88; PULSE 73
[2024-02-06] MEDS: Melatonin 3 MG TABLET 6 MG PO (21:25)
[2024-02-06] MEDS: Propranolol HCL 20 MG TABLET PO (21:25)
[2024-02-06] MEDS: QUEtiapine Fumarate 50 MG TABLET PO (21:27)
[2024-02-07 08:00] VITALS: RESP 18; TEMP 36.1; O2SAT 97
[2024-02-07] MEDS: Nicotine 14 MG PATCH.TD24 TRANSDERMA (08:22)
[2024-02-07] MEDS: Acyclovir 200 MG CAPSULE 400 MG PO ×3 (08:24→20:59)
[2024-02-07] MEDS: Cholecalciferol (Vitamin D3) 25 MCG TABLET PO (08:24)
[2024-02-07] MEDS: Cyclobenzaprine HCl 5 MG TABLET PO (08:24)
[2024-02-07] MEDS: oxyBUTYnin chloride ER 5 MG TAB.ER.24 10 MG PO (08:25)
[2024-02-07 08:26] VITALS: BP 169/82
[2024-02-07] MEDS: amLODIPine Besylate 2.5 MG TABLET PO (08:26)
[2024-02-07] MEDS: Venlafaxine HCl ER 150 MG CAP.ER.24H PO (08:26)
[2024-02-07] MEDS: Docusate Sodium 100 MG CAPSULE PO (08:27)
[2024-02-07] MEDS: HYDROcodone Bit/Acetam 5/325 TABLET 2 TAB PO ×4 (08:27→20:59)
[2024-02-07 08:28] VITALS: BP 169/82; PULSE 70
[2024-02-07] MEDS: Propranolol HCL 20 MG TABLET PO ×2 (08:28→21:00)
[2024-02-07] MEDS: Nicotine Polacrilex Lozenge 4 MG LOZENGE BUCCAL (08:46)
[2024-02-07] MEDS: LORazepam 0.5 MG TABLET PO ×2 (08:47→21:01)
--- NOTE | 2024-02-07 14:30 | MHC.CLN ---
F/U DIET=REGULAR. APPEARS TO BE EATING WELL. DOES NOT WANT ENSURE SUPPLEMENT. UNDERWEIGHT WITH BMI=17.2. MONITOR WEIGHT AND PO INTAKE. RD TO FOLLOW UP WEEKLY.
--- NOTE | 2024-02-07 16:41 | HO.PSYCHPN ---
Subjective Subjective Date of Service: 02/07/24 Reason For Visit: Depression Subjective Notes: Conditional Voluntary Interim History: Pt slept through the night. She had sleep study- no need for cpap. Pt reports feeling less anxious. No panic attacks recently. She has tolerated much lower dose of ativan, now on 0.5mg po bid prn. She denies SI/HI. She appears less overwhelmed. looking forward to ks tomorrow. Review of Systems Constitutional: Denies body ache(s), Denies fatigue, Denies frequent falls and Denies headache(s) Eyes: Denies change in vision and Denies diplopia Denies headache(s), Denies nasal congestion and Denies nasal discharge Cardiovascular: Denies chest pain, Denies leg edema and Denies dyspnea Respiratory: Denies chest congestion, Denies cough and Denies dyspnea Gastrointestinal: Denies abdominal pain, Denies constipation, Denies diarrhea, Denies nausea and Denies vomiting Musculoskeletal: Denies back pain and Denies myalgias Skin/Breast: Denies rash Denies frequent falls and Denies headache(s) Psychiatric: Reports no additional psychiatric complaints Endocrine: Denies fatigue Hematologic/Lymphatic: Denies easy bleeding and Denies easy bruising Mental Status Exam Mental Status Exam Narrative: Appearance: wearing hospital gown, fair hygiene, thin, malnourished, appears older than stated age. Behavior: cooperative Psychomotor: no agitation or retardation noted Speech: clear, normal rate/rhythm/volume, spontaneous TP: linear TC: without signs of psychosis, open to receive tx Mood: better Affect: brighter SI: none HI: none VH/AH: none Delusions: none Insight/judgment: improvement x 2 Memory/cog: alert, oriented x 3. MOCA 15/30, ACL 4.8 Diagnostics Vital Signs (24Hr): Vital Signs - 24 hr 02/06/24 20:00 02/06/24 21:25 02/07/24 08:00 Temperature 98 F 96.9 F Pulse Rate 73 73 Respiratory Rate 18 18 Blood Pressure 159/88 H 159/88 H Pulse Oximetry 96 97 Oxygen Delivery Method Room Air Room Air 02/07/24 08:26 02/07/24 08:28 Temperature Pulse Rate 70 Respiratory Rate Blood Pressure 169/82 H 169/82 H Pulse Oximetry Oxygen Delivery Method BMI result Body Mass Index 17.2 Labs 02/02/24 07:40 Medications Medications Current Medications Hydrocodone Bitart/Acetaminophen (Hydrocodone Bit/Acetam 5/325 Tablet) 2 tab PO QID [facility] Last Admin: 02/07/24 13:08 Dose: 2 tab Acyclovir (Acyclovir 200 Mg Capsule) 400 mg PO TID [facility] Last Admin: 02/07/24 15:31 Dose: 400 mg Al Hydroxide/Mg Hydroxide (Magnesium Hydrox/Alum Hydrox 30 Ml Oral.Susp) 30 ml PO Q6H PRN PRN Reason: Heartburn/Nausea Albuterol Sulfate (Albuterol Sulfate 90 Mcg 8 Gm Inhaler) 2 puff INHALE Q4H PRN PRN Reason: Shortness Of Breath Amlodipine Besylate (Amlodipine Besylate 5 Mg Tablet) 5 mg PO DAILY [facility]; Protocol Cyclobenzaprine HCl (Cyclobenzaprine Hcl 5 Mg Tablet) 5 mg PO DAILY [facility] Last Admin: 02/07/24 08:24 Dose: 5 mg Docusate Sodium (Docusate Sodium 100 Mg Capsule) 100 mg PO DAILY [facility] Last Admin: 02/07/24 08:27 Dose: 100 mg Hydroxyzine HCl (Hydroxyzine Hcl 25 Mg Tablet) 25 mg PO Q6H PRN PRN Reason: Anxiety Last Admin: 02/05/24 08:29 Dose: 25 mg Lorazepam (Lorazepam 0.5 Mg Tablet) 0.5 mg PO BID PRN PRN Reason: Anxiety Magnesium Hydroxide (Milk Of Magnesia 30 Ml Oral.Susp) 30 ml PO DAILY PRN PRN Reason: Constipation Melatonin (Melatonin 3 Mg Tablet) 6 mg PO BEDTIME [facility] Last Admin: 02/06/24 21:25 Dose: 6 mg Nicotine (Nicotine 14 Mg Patch.Td24) 14 mg TRANSDERMA DAILY [facility] Last Admin: 02/07/24 08:22 Dose: 14 mg Nicotine Polacrilex (Nicotine Polacrilex Lozenge 4 Mg Lozenge) 4 mg BUCCAL Q2H PRN PRN Reason: Nicotine Cravings Last Admin: 02/07/24 08:46 Dose: 4 mg Oxybutynin Chloride (Oxybutynin Chloride Er 5 Mg Tab.Er.24) 10 mg PO DAILY [facility] Last Admin: 02/07/24 08:25 Dose: 10 mg Propranolol HCl (Propranolol Hcl 20 Mg Tablet) 20 mg PO BID [facility]; Protocol Last Admin: 02/07/24 08:28 Dose: 20 mg Quetiapine Fumarate (Quetiapine Fumarate 50 Mg Tablet) 50 mg PO BEDTIME [facility] Last Admin: 02/06/24 21:27 Dose: 50 mg Venlafaxine HCl (Venlafaxine Hcl Er 150 Mg Cap.Er.24h) 150 mg PO DAILY [facility] Last Admin: 02/07/24 08:26 Dose: 150 mg Vitamin D (Cholecalciferol (Vitamin D3) 25 Mcg Tablet) 25 mcg PO DAILY [facility] Last Admin: 02/07/24 08:24 Dose: 25 mcg Allergies Allergies Allergy/AdvReac Type Severity Reaction Status Date / Time alendronate sodium Allergy Gastrointestinal Verified 02/01/24 16:59 Upset fluoxetine Allergy Unknown Verified 02/01/24 16:59 morphine Allergy Hives Verified 02/01/24 16:59 Penicillins Allergy Hives Verified 02/01/24 16:59 simvastatin Allergy Unknown Verified 02/01/24 16:59 varenicline AdvReac Unknown Verified 02/01/24 16:59 Assessment & Plan Assessment & Plan (1) MDD (major depressive disorder), recurrent severe, without psychosis: Status: Acute Code(s): F33.2 - Major depressive disorder, recurrent severe without psychotic features Plan Ms. Robles is a 68 year-old woman who was brought via EMS to [facility] ED after intentional OD on ativan. Per documentation from ED, pt had reported taking half bottle of ativan. It is unclear as to who called 911, pt denies she did. In the ED, no significant signs of an actual ativan overdose; pt is described as alert, oriented, no respiratory distress. She reports taking about 4mg-6mg of ativan or so, to help her sleep.' She reports frequent falls, but also reports not remembering how she got them. She has a 1-2cm wound on left knee which she states she does not know how it happened. She also cut right upper arm, which again she states she does not know how it happened. Combination and doses of opioid medication and ativan are concerning. It does seem like ativan has been decreased from 6mg/day to 4mg/day. We discussed gradual decrease in ativan further, to 1mg TID or 0.5mg TID, which pt was in agreement. Will continue effexor 150mg po daily. Will repeat EKG as Qtc was prolonged 505ms. PLAN 1. Admit to S1, CV, 15 minutes checks for safety 2. Memory/cognitive screening 3. obtain collateral information 4. aftercare planning. 02/02 held trazodone trial of seroquel for sleep and depression- adjunct to effexor- suggested family phone call with sw to discuss options of relocating- needs something to make her less isolated and more connected in her community to decrease risks on dc 02/03 ,add in gurwinder, seroquel substituted for trazodone, CTP 02/04 continue tx. 02/05 continue tx. 02/06 continue tx. Reason for continued inpatient stay Substantial Risk for: stable for discharge Time Spent With Patient Time: Total time managing care of this patient today ____ minutes.
[2024-02-07 20:00] VITALS: BP 178/83; PULSE 77; RESP 16; TEMP 36.4; O2SAT 97
[2024-02-07 21:00] VITALS: BP 178/83; PULSE 77
[2024-02-07] MEDS: Melatonin 3 MG TABLET 6 MG PO (21:01)
[2024-02-07] MEDS: QUEtiapine Fumarate 50 MG TABLET PO (21:01)
[2024-02-07 21:51] VITALS: BP 133/77; PULSE 74
[2024-02-08] MEDS: Acyclovir 200 MG CAPSULE 400 MG PO (07:59)
[2024-02-08] MEDS: Cyclobenzaprine HCl 5 MG TABLET PO (07:59)
[2024-02-08] MEDS: Venlafaxine HCl ER 150 MG CAP.ER.24H PO (07:59)
[2024-02-08] MEDS: HYDROcodone Bit/Acetam 5/325 TABLET 2 TAB PO (07:59)
[2024-02-08 08:00] VITALS: BP 149/84; PULSE 80; RESP 18; TEMP 36.6; O2SAT 96
[2024-02-08] MEDS: Propranolol HCL 20 MG TABLET PO (08:00)
[2024-02-08] MEDS: Cholecalciferol (Vitamin D3) 25 MCG TABLET PO (08:00)
[2024-02-08] MEDS: oxyBUTYnin chloride ER 5 MG TAB.ER.24 10 MG PO (08:00)
[2024-02-08] MEDS: amLODIPine Besylate 5 MG TABLET PO (08:00)
[2024-02-08] MEDS: Docusate Sodium 100 MG CAPSULE PO (08:02)
--- NOTE | 2024-02-08 08:39 | PM.PSYDC ---
DS: Providers Provider Date of Service: 02/08/24 Date of admission: 02/01/24 16:00 Date of discharge: 02/08/24 Primary care physician: Unknown Physician Consults: 02/01/24 17:09 Consult to Hospitalist Routine Comment: Consulting Provider: Hospitalist Reason For Exam: Direct admission Consult to Wound Care Routine Reason for consultation: open wound on admission DS: Diagnosis Discharge Diagnosis (1) MDD (major depressive disorder), recurrent severe, without psychosis: Status: Acute DS: Medications Discharge Medications Home Medications: Home Medications ?Medication ?Instructions ?Recorded ?Confirmed acyclovir 400 mg tablet 400 mg PO TID 02/01/24 02/01/24 albuterol sulfate 90 mcg/actuation 90 mcg inhalation Q3-4H PRN 02/01/24 02/01/24 aerosol inhaler Shortness Of Breath amlodipine 2.5 mg tablet 2.5 mg PO 1XD 02/01/24 02/01/24 cyclobenzaprine 5 mg tablet 5 mg PO 1XD 02/01/24 02/01/24 docusate sodium 100 mg capsule 100 mg PO 1XD 02/01/24 02/01/24 hydrocodone 10 mg-acetaminophen 10 - 325 tab PO QID 02/01/24 02/01/24 325 mg tablet lorazepam 1 mg tablet 1 mg PO QID 02/01/24 02/01/24 oxybutynin chloride 10 mg 10 mg PO 1XD 02/01/24 02/01/24 tablet,extended release 24 hr trazodone 50 mg tablet 50 mg PO 1XD insomnia 02/01/24 02/01/24 venlafaxine 150 mg 150 mg PO 1XD 02/01/24 02/01/24 capsule,extended release 24 hr Data Data Completed and Pending Completed studies during hospitalization [Text1]: 02/02/24 07:40 Sodium 141 Potassium 4.8 Chloride 102 Carbon Dioxide 30 H Anion Gap 14 BUN 19 H Creatinine 0.71 Estim Creat Clear Calc 52.6 Estimated GFR > 60 Fasting Glucose 68 Calcium 10.1 Total Bilirubin 0.4 AST 11 ALT 9 Alkaline Phosphatase 79 Total Protein 6.9 Albumin 4.0 Triglycerides 150 H Cholesterol 217 H LDL Cholesterol, Calc 132 H HDL Cholesterol 55 DS: Summary Hospital Course Hospital Course: Subjective Notes: Jerez Warning and Conditional Voluntary Narrative: Ms. Robles is a 68 year-old woman who was brought via EMS to [facility] ED after intentional OD on ativan. Per ED documentation, pt had reported intentionally taking half a bottle of ativan. She had episode of emesis but no visible pills. In the ED, pt presented as oriented, fully alert, no signs of benzo toxicity. Pt did not show signs of somnolence of drowsiness. Uox was positive for benzodiazepam, cannabinoids and opiates, negative for oxycodone. In the ED, pt reported feeling depressed, wanting to although at the same time was demanding to be discharged. ED obtained collateral information from the daughter who had reported concern in terms of pt presenting as more depressed, confused at times and daughter reported concern in terms of high dose of ativan being prescribed to her. Per [facility]- pt has had ativan 6mg/day, then decrease to current dose of 4mg/day. She also has RX hydrocodone-acetaminophen 10/325 po qid. On the unit, pt presents as cooperative and tearful. She reports she has been more depressed in the past 2 years. She also reports for the past 2 weeks, she has not been able to sleep. She denied that she attempted to end her life, but instead that she was trying to go to sleep. She reports feeling lonely. She reports both adult children live in [place] and barely give her a call once in a while. She reports she is facing eviction from apartment due to smoking in the apartment. She reports is not an official eviction, and she is not as concern about it but states due to depressed mood, she feels she can barely take care of things. She reports she has pain related to arthritis, sciatic pain. She reports pain is well controlled with current pain meds. She does report some sedation and at times not remembering what has happend to her. She has open wound on left knee, which she reports she does not remember how she got it. She also has cut on upper left arm which again she reports she does not know how or when it happened but denies that it was intentional. She reports using cannabis a times. She denies alcohol use or any other substance use. She endorses depressed mood, anhedonia, feeling hopeless, helpless, lonely. She also reports intermittent suicidal ideation but denies any plan or intent to harm herself. She reports feeling very anxious at times, when waking up, feeling numbness on hands and subjective feeling of restlessness and anxiety which is why her PCP prescribes ativan. She denies hx of VH/AH, delusions. Past Psychiatric History: Inpt: reports prior psych admission about 10 years ago (also for suicidal ideation). OP: none currently Past trials: prozac, effexor, ativan Medical Evaluation Reviewed: Yes HOSPITAL COURSE On the unit, pt was admitted on a CV and placed on 15 minutes checks for safety. Pt presented as tearful, depressed. She denied any plan or intent to end her life but felt that she did not have much to look forward in her life. She endorsed feeling lonely, both adult children are in [place] and she reports infrequent phone calls. She reports she has a sister, with whom she does not talk that often. She also reports she has her BF, but she has been isolating more and more due to her depression. Another concerning aspect is medications being prescribed to her including combination of opioid pain medications and benzodiazepine. She had ativan total of 6mg/day, which then was decreased to 4mg/day. She reports frequent falls and not remembering how she got wounds on knees or her arm. She also reported difficulty sleeping, which she reports intent of taking additional ativan was with intent to help with sleep. We discussed risks, benefits and alternative treatment options. Pt agreed to decrease ativan, which was gradually lowered to 0.5mg po BID prn. She presented as much more alert, brighter mood. She denied SI/HI. She presented as less overwhelmed and hopeless. Shee presented as increasingly more future oriented. Recommended to follow up with psychiatric prescribed, but she declined stating she would continue working with PCP. Recommendation is NOT to increase dose of ativan. She was noted to have essetial tremors which affect her ability to hold cup and feed herself. She was started on propanolol 20mg po BID, which helped significantly with tremor and also with sense of anxiety. She had difficulty on the unit mostly related with nicotine cravings. She was given nicotine patch and gum. Her sleep significantly improved with low dose seroquel. We did complete sleep study while on the unit, which did NOT show need for CPAP nor JARVIS. She was maintain on venlafaxine ER 150mg po daily. Her SBP noted to be on 169. Her amlodipine was increased from 2.5mg po daily to 5mg po daily. She was increasingly more visible on the unit, social with select peers. No behavioral concerns. Memory and cognitive assessment were completed. She scored 15/30 on MOCA with most impairments on executive function, visuo spatial, recall, language fluency, attention with intact orientation. ACL scored was higher 4.8 showing moderate cognitive impairment. Pattern of impairment seems to be of vascular type. Time spent discussing smoking cessation with patient: more than 10 minutes Status at Discharge Cognitive/behavioral status at discharge: Pt with brighter affect, non labile. No SI/HI. No psychosis or delusions. Pt presents increasingly more future oriented. No signs of aggression towards self or others. Sleeping and eating better. Functional status at discharge: independent ambulation Overall status at discharge: patient is progressing back to baseline Time Spent with Patient Time attestation: Total time managing care of this patient today __35__ minutes. Time spent: Greater than 30 minutes Discharge Plan Discharge Anticipated Discharge Date/Time: 02/08/24 08:39 Patient Disposition: Home, Self-Care Discharge Diagnosis: MDD, recurrent, moderate Referrals: Katiuska Baron [employer]UP[employer] S[employer] AND HEALTH MANAGER [Other] - 02/15/24 11:00 am (Your appointment for Katiuska will be 02/14 at 11:00 AM. IF you have any questions or concerns please call the number above.) Discharge Medications: New acyclovir 400 mg tablet 400 mg PO TID Qty: 90 0RF nicotine 14 mg/24 hr Patch 24 Hour 14 mg transdermal DAILY Qty: 30 0RF amlodipine 5 mg Tablet 5 mg PO DAILY Qty: 30 0RF Protocol: Hold for SBP< HOLD for SBP < : 90 albuterol sulfate [Ventolin HFA] 90 mcg/actuation Hfa Aerosol Inhaler 2 puff inhalation Q4H PRN (Reason: Shortness Of Breath) Qty: 6.7 0RF propranolol 20 mg Tablet 20 mg PO BID Qty: 60 0RF Protocol: Hold for SBP/HR < HOLD for SBP < : 90 HOLD for HR < : 60 nicotine (polacrilex) 4 mg Lozenge 4 mg buccal Q2H PRN (Reason: Nicotine Cravings) Qty: 90 0RF cyclobenzaprine 5 mg Tablet 5 mg PO DAILY Qty: 30 0RF venlafaxine 150 mg Capsule,Extended Release 24hr 150 mg PO DAILY Qty: 30 0RF melatonin 3 mg Tablet 6 mg PO BEDTIME Qty: 60 0RF lorazepam 0.5 mg Tablet 0.5 mg PO BID PRN (Reason: Anxiety) Qty: 30 0RF quetiapine 50 mg Tablet 50 mg PO BEDTIME Qty: 30 0RF cholecalciferol (vitamin D3) 25 mcg (1,000 unit) Tablet 25 mcg PO DAILY Qty: 30 0RF Continued oxybutynin chloride 10 mg tablet extended release 24hr 10 mg PO 1XD hydrocodone-acetaminophen 10-325 mg tablet 10 - 325 tab PO QID Discontinued amlodipine 2.5 mg tablet 2.5 mg PO 1XD acyclovir 400 mg tablet 400 mg PO TID docusate sodium 100 mg capsule 100 mg PO 1XD lorazepam 1 mg tablet 1 mg PO QID albuterol sulfate 90 mcg/actuation HFA aerosol inhaler 90 mcg INHALATION Q3-4H PRN (Reason: Shortness Of Breath) cyclobenzaprine 5 mg tablet 5 mg PO 1XD trazodone 50 mg tablet 50 mg PO 1XD venlafaxine 150 mg capsule,extended release 24hr 150 mg PO 1XD Discharge Orders: Discharge Order (Routine); Ordered 02/08/24 Ordered By: Rosenda Burdick Diet: Regular diet Activity on Discharge: As tolerated Stand Alone Forms: Patient Portal Discharge page, Community Support Print Language: Hungarian Care Plan Goals: 1. Maintain mood 2. No SI/HI Health Concerns: Follow up with PCP for routine care- HTN amlodipine increased from 2.5mg po to 5mg po. Propanolol for tremors Plan of Treatment: 1. Take medications as prescribed. May benefit from VNA 2. Go to nearest ED or call 911 in event of emergency Assessment: Pt with brighter, no SI/HI. No VH/AH, no delusions. Future oriented. Sleeping better. No aggression towards self or others.
== END 2024-02-08 10:15 | disposition home or self-care (01) | DRG 885 ==
PROVIDERS: Admitting Provider Psychiatry & Neurology Psychiatry; Visit Provider Psychiatry & Neurology Psychiatry
DX: F33.1 Major depressive disorder, recurrent, moderate (principal); E78.5 Hyperlipidemia, unspecified; F17.210 Nicotine dependence, cigarettes, uncomplicated; J44.9 Chronic obstructive pulmonary disease, unspecified; I10 Essential (primary) hypertension; N32.81 Overactive bladder; Z71.6 Tobacco abuse counseling; Z91.51 Personal history of suicidal behavior; Z85.41 Personal history of malignant neoplasm of cervix uteri; Z85.118 Personal history of other malignant neoplasm of bronchus and lung; Z62.811 Personal history of psychological abuse in childhood; Z79.899 Other long term (current) drug therapy
CPT/HCPCS: 36415; 80053; 80061; 99222

== ENCOUNTER → 2024-02-01 16:00 | Outpatient (BNV) | payer MEDICARE, SELFPAY | PROVIDERS: Admitting Provider Psychiatry & Neurology Psychiatry; Visit Provider Social Worker | DX: F33.2 Major depressive disorder, recurrent severe without psychotic features (principal) | CPT/HCPCS: 90792; 99231; 99239 ==